=== PATIENT | male | born 1975 | race Caucasian/White ===

== ENCOUNTER 2017-01-18 21:22 | Emergency (ER) | payer BC, OTHER ==
[2017-01-18] MEDS ORDERED: ONDANSETRON 4 MG/2 ML VIAL IVP STA (21:33)
[2017-01-18] MEDS ORDERED: KETOROLAC 60 MG/2 ML VIAL IVP STA (21:33)
[2017-01-18] MEDS ORDERED: SODIUM CHLORIDE 0.9% 1,000 ML IV ONE ×2 (21:34→21:36)
[2017-01-18] MEDS ORDERED: ONDANSETRON 4 MG/2 ML VIAL ONE (21:36)
[2017-01-18] MEDS ORDERED: KETOROLAC 30 MG/ML VIAL ONE (21:36)
[2017-01-18] MEDS ORDERED: MORPHINE 10 MG/ML VIAL IVP STA (22:04)
[2017-01-18] MEDS ORDERED: MORPHINE 10 MG/ML VIAL ONE (22:08)
[2017-01-18] MEDS ORDERED: oxyCODONE/ACET 5/325 Prepack 4 PO STA (22:32)
[2017-01-18] MEDS ORDERED: ONDANSETRON ODT 4 MG Prepack 2 TL PRN (22:33)
[2017-01-18] MEDS ORDERED: TAMSULOSIN 0.4 MG CAPSULE PO STA (22:33)
[2017-01-18] MEDS ORDERED: oxyCODONE/ACET 5/325 Prepack 4 PO ONE (22:37)
[2017-01-18] MEDS ORDERED: ONDANSETRON ODT 4 MG Prepack 2 TL ONE (22:37)
[2017-01-18] MEDS ORDERED: TAMSULOSIN 0.4 MG CAPSULE ONE (22:37)
== END 2017-01-18 22:55 | disposition home or self-care (01) ==
DX: N13.2 Hydronephrosis with renal and ureteral calculous obstruction (principal); I10 Essential (primary) hypertension; F17.200 Nicotine dependence, unspecified, uncomplicated
CPT/HCPCS: 74176; 81001; 96361; 96374; 96375; 99283; 99284; A9270

== ENCOUNTER 2020-01-31 07:51 | Emergency (ER) | payer BC ==
--- NOTE | 2020-01-31 08:19 | ED Physician Documentation ---
History of Present Illness - Stated complaint Stated Complaint: RT SIDE PX - Chief complaint Chief Complaint: Abd Pain - History obtained from History obtained from: Patient - History of Present Illness Timing: Today Pain level max: 10 Pain level now: 8 Radiates to: None - Additonal information Additional information: This is a 44-year-old man who presents with complaints that he has a history of kidney stones woke up this morning at approximately 3-1/2 hours prior to presentation with his right side "killing him". He urinated and it did not do anything to alleviate the pain and then he had a bowel movement and urinated at the same time and the urine was very dark. Pain was a 10 out of 10 it is now down to an 8 out of 10. He did not take anything for it at home. He just wants Flomax, "hydromorphone" and Zofran and "get out of our hair". He does see a urologist and has had to have lithotripsy and a ureteroscopic he in the past. He has managed to pass stones spontaneously. He denies pain radiating down his legs. He is been nauseous but no vomiting or diarrhea. Denies fever. He has not had any upper respiratory symptoms of sore throat, stuffy nose or coughing. He does take blood pressure medications. The patient works as an accounting professional. He says he drinks about 3 alcoholic beverages a week. Review of Systems Constitutional: denies: Fever Nose: denies: Rhinorrhea / runny nose, Congestion Throat: denies: Sore throat Cardiac: denies: Chest pain / pressure Respiratory: denies: Dyspnea, Cough GI: reports: Abdominal Pain, Nausea. denies: Vomiting, Diarrhea : denies: Dysuria, Hematuria (Urine did look very dark) Musculoskeletal: reports: Back pain (Right flank) Neurologic: denies: Focal weakness, Numbness, Near syncope PD PAST MEDICAL HISTORY - Past Medical History Cardiovascular: Hypertension : Kidney stones - Past Surgical History Past Surgical History: Yes - Present Medications Home Medications: Ambulatory Orders Medication Instructions Recorded Confirmed Lisinopril 1 mg PO DAILY 01/18/17 01/18/17 Ondansetron Odt [Zofran] 4 mg TL Q6H PRN #10 tablet 01/31/20 Oxycodone HCl/Acetaminophen 1 each PO Q4H #20 tablet 01/31/20 [Endocet 7.5-325 mg Tablet] Tamsulosin HCl [Flomax] 0.4 mg PO DAILY #16 cap.er.24h 01/31/20 - Allergies Allergies/Adverse Reactions: Allergies Allergy/AdvReac Type Severity Reaction Status Date / Time No Known Drug Allergies Allergy Verified 01/31/20 08:11 - Social History Does the pt smoke?: Yes Smoking Status: Current every day smoker Does the pt drink ETOH?: Yes Does the pt have substance abuse?: Yes - Immunizations Immunizations are current?: Yes - POLST Patient has POLST: No PD ED PE NORMAL - Vitals Vital signs reviewed: Yes - General General: Alert and oriented X 3, Well developed/nourished, Other (Sitting on the side of the exam table clutching at his right side/flank and grunting in pain.) - HEENT HEENT: Atraumatic, PERRL, Moist mucous membranes - Cardiac Cardiac: RRR, No murmur - Respiratory Respiratory: No respiratory distress, Clear bilaterally - Abdomen Abdomen: Normal bowel sounds, Other (He is holding his musculature pretty tight but does not appear to be in any pain. No guarding or rebound.) - Back Back: No CVA TTP - Derm Derm: Normal color, Warm and dry, No rash - Extremities Extremities: No edema - Neuro Neuro: Alert and oriented X 3, contract paralegal 2-12 intact, No motor deficit, No sensory def icit, Normal speech Results - Vitals Vitals: Vital Signs - 24 hr 01/31/20 01/31/20 01/31/20 08:09 08:42 09:14 Temperature 36.5 C 36.6 C Heart Rate 91 70 75 Respiratory 18 18 16 Rate Blood Pressure 140/86 H 129/79 120/75 O2 Saturation 99 97 98 Oxygen O2 Source Room air - Labs Labs: Laboratory Tests 01/31/20 01/31/20 01/31/20 08:17 08:24 08:24 WBC 8.3 RBC 5.48 Hgb 16.0 Hct 48.8 MCV 89.1 MCH 29.2 MCHC 32.8 RDW 12.2 Plt Count 266 MPV 9.1 Neut # (Auto) 6.4 Lymph # (Auto) 1.2 L Stephens # (Auto) 0.5 Eos # (Auto) 0.1 Baso # (Auto) 0.0 Absolute Nucleated RBC 0.00 Nucleated RBC % 0.0 Sodium 138 Potassium 4.4 Chloride 107 Carbon Dioxide 23 Anion Gap 8.0 BUN 14 Creatinine 0.9 Estimated GFR (MDRD) 92 Glucose 102 H Calcium 8.9 Total Bilirubin 0.5 AST 26 ALT 43 Alkaline Phosphatase 70 Total Protein 6.8 Albumin 4.1 Globulin 2.7 Albumin/Globulin Ratio 1.5 Lipase 42 Urine Color YELLOW Urine Clarity HAZY Urine pH 6.0 Ur Specific [place] 1.010 Urine Protein NEGATIVE Urine Glucose (UA) NEGATIVE Urine Ketones NEGATIVE Urine Occult Blood LARGE H Urine Nitrite NEGATIVE Urine Bilirubin NEGATIVE Urine Urobilinogen 0.2 (NORMAL) Ur Leukocyte Esterase NEGATIVE Urine RBC TNTC H Urine WBC 0-3 Ur Squamous Epith Cells RARE Squamous Urine Bacteria Rare Urine Mucus Few Strands Ur Microscopic Review INDICATED Urine Culture Comments NOT INDICATED - Rads (name of study) KUB Radiology: EMP read indepedently (Probable kidney stone at L2 lat process measuring appro 4mm), EMP read contemporaneously PD MEDICAL DECISION MAKING - ED course Complexity details: re-evaluated patient ED course: 911; IV was started the patient was given a liter of fluids Zofran and 30 mg of Toradol IV. On reevaluation he said the pain was down to just feeling like a poking in the right flank. Urine had too numerous to count red blood cells. No white blood cells. His white blood cell count is normal and his BUN and creatinine are normal. A KUB was ordered to see if we can see the stone. 0956: The KUB radiology report is still pending but I think I see what could be a stone around the L2 Lateral process that measures just at 4 mm. Patient had good pain relief with the Toradol. Will discharge with hydrocodone prescription, Flomax is well as Zofran. He has a urologist and will be encouraged to schedule follow-up appointment with them. 1012: Patient was stating that the hydrocodone prescriptions have never worked for him in the past. He is always been given hydromorphone. I do not feel comfortable prescribing Dilaudid from the emergency department for an acute issue. I will give him a prescription for Percocet and we talked about keeping the pain under control so that he does not get out of control. Departure - Departure Disposition: 01 Home, Self Care Clinical Impression: Renal colic Condition: Good Instructions: ED Stone Renal W Colic Prescriptions: Ondansetron Odt [Zofran] 4 mg TL Q6H PRN #10 tablet PRN Reason: Nausea / Vomiting Oxycodone HCl/Acetaminophen [Endocet 7.5-325 mg Tablet] 1 each PO Q4H #20 tablet Tamsulosin HCl [Flomax] 0.4 mg PO DAILY #16 cap.er.24h Comments: Make sure that you are drinking plenty of water at least 100 ounces a day. Take the Flomax daily as prescribed. Use the Zofran if feeling nausea. Take hydrocodone if needed for pain. Do not drive or operate machinery or take additional Tylenol if you are using the hydrocodone. Also take ibuprofen 3 to 4 tablets every 8 hours with food. Call and schedule follow-up appointment with the urology specialist. If you have pain that is not being relieved with the pain medications, you are vomiting and cannot keep anything down, develop fever or are not urinating you should be reevaluated.
[2020-01-31 08:25] LABS: BILIRUBIN,URINE NEGATIVE (NEGATIVE); GLUCOSE, URINE (UA) NEGATIVE (NEGATIVE); KETONES,URINE (UA) NEGATIVE (NEGATIVE); LEUKOCYTE ESTERASE, URINE NEGATIVE (NEGATIVE); NITRITE,URINE NEGATIVE (NEGATIVE); OCCULT BLOOD,URINE LARGE (NEGATIVE); PROTEIN,URINE NEGATIVE (NEGATIVE); UROBILINOGEN,URINE 0.2 (NORMAL) E.U./dL (NORMAL)
[2020-01-31] MEDS ORDERED: ONDANSETRON 4 MG/2 ML VIAL IVP STA (08:28)
[2020-01-31] MEDS ORDERED: SODIUM CHLORIDE 0.9% 1,000 ML IV ONE (08:28)
[2020-01-31] MEDS ORDERED: KETOROLAC 30 MG/ML VIAL IVP STA (08:28)
[2020-01-31 08:30] LABS: BASOPHILS % (AUTO) 0.5 %; EOSINOPHILS # (AUTO) 0.1 10^3/uL (0.0-0.7); EOSINOPHILS % (AUTO) 1.1 %; LYMPHOCYTES # (AUTO) 1.2 10^3/uL (1.5-3.5); LYMPHOCYTES % (AUTO) 14.9 %; MEAN CORPUSCULAR HEMOGLOBIN 29.2 pg (27.0-31.0); MEAN CORPUSCULAR HGB CONC 32.8 g/dL (32.0-36.0); MEAN CORPUSCULAR VOLUME 89.1 fL (80.0-94.0); MEAN PLATELET VOLUME 9.1 fL (7.4-11.4); MONOCYTES # (AUTO) 0.5 10^3/uL (0.0-1.0); MONOCYTES % (AUTO) 5.9 %; NEUTROPHILS # (AUTO) 6.4 10^3/uL (1.5-6.6); NEUTROPHILS % (AUTO) 77.1 %; PLT - PLATELET COUNT 266 10^3/uL (130-450); RED BLOOD COUNT 5.48 10^6/uL (4.70-6.10); RED CELL DISTRIBUTION WIDTH 12.2 % (12.0-15.0); WHITE BLOOD COUNT 8.3 x10^3/uL (4.8-10.8)
[2020-01-31 08:38] LABS: CLARITY,URINE HAZY (CLEAR)
[2020-01-31 08:41] LABS: BACTERIA,URINE Rare /HPF (None Seen); MUCUS,URINE Few Strands; RBC,URINE TNTC /HPF (0-5); SQUAMOUS EPITHELIAL CELL,UR RARE Squamous (<= Few)
[2020-01-31 08:43] LABS: ALBUMIN 4.1 g/dL (3.2-5.5); ALBUMIN/GLOBULIN RATIO 1.5 (1.0-2.2); BILIRUBIN,TOTAL 0.5 mg/dL (0.2-1.0); CALCIUM 8.9 mg/dL (8.5-10.3); CREATININE 0.9 mg/dL (0.6-1.2); TOTAL PROTEIN 6.8 g/dL (6.7-8.2)
--- NOTE | 2020-01-31 09:54 | XRAY Report ---
Reason: R flank pain; h/o kidney stones Procedure Date: 01/31/2020 Accession Number: [id number] / [id number] Procedure: XR - Abdomen 1 View X-Ray CPT Code: 55347 Final Report FULL RESULT: EXAM: ABDOMEN RADIOGRAPHY EXAM DATE: 01/31/2020 09:31 AM. CLINICAL HISTORY: R flank pain; h/o kidney stones. COMPARISON: ABDOMEN/PELVIS W/O 01/18/2017 9:49 PM. TECHNIQUE: 1 view. FINDINGS: Diaphragm/uppermost abdomen excluded from imaging. Bowel Gas Pattern: Within normal limits. No dilated loops. Other: 4 mm calcific density over the left mid renal shadow could reflect renal calculus. A non-obstructing calculus was seen in this region on prior CT. Faint 4-5 mm density adjacent to the right L2 transverse process could be related to bowel contents versus right ureter stone. No acute osseous abnormality. IMPRESSION: 1. 4-5 mm density adjacent to the right L2 transverse process could be related to bowel contents versus right ureter stone. 2. 4 mm calcific density over left renal shadow likely related to nonobstructing calculus. 2. Otherwise unremarkable single view abdominal radiography. [facility]
[2020-01-31 10:34] VITALS: BP 110/76
== END 2020-01-31 10:34 | disposition home or self-care (01) ==
LOC: ED 07:51
DX: N23 Unspecified renal colic (principal); I10 Essential (primary) hypertension; F17.210 Nicotine dependence, cigarettes, uncomplicated
CPT/HCPCS: 36415; 74018; 80053; 81001; 81003; 83690; 85025; 87086; 96374; 99284

== ENCOUNTER 2020-08-19 15:21 | Outpatient (CLI) | payer BC ==
[2020-08-19 21:16] LABS: BILIRUBIN,URINE NEGATIVE (NEGATIVE); GLUCOSE, URINE (UA) NEGATIVE (NEGATIVE); KETONES,URINE (UA) NEGATIVE (NEGATIVE); LEUKOCYTE ESTERASE, URINE NEGATIVE (NEGATIVE); NITRITE,URINE NEGATIVE (NEGATIVE); OCCULT BLOOD,URINE MODERATE (NEGATIVE); PROTEIN,URINE NEGATIVE (NEGATIVE); UROBILINOGEN,URINE 0.2 (NORMAL) E.U./dL (NORMAL)
[2020-08-19 21:19] LABS: CLARITY,URINE CLOUDY (CLEAR)
[2020-08-19 21:35] LABS: AMORPHOUS SEDIMENT,UR Few /LPF; BACTERIA,URINE None Seen /HPF (None Seen); MUCUS,URINE Moderate Strands; SPERM,URINE PRESENT; SQUAMOUS EPITHELIAL CELL,UR NONE SEEN (<= Few)
== END 2020-08-19 23:59 | disposition home or self-care (01) ==
LOC: LAB.R 15:21
PROVIDERS: ATTEND Physician Assistant Medical
DX: R30.0 Dysuria (principal)
CPT/HCPCS: 81001; 87086

== ENCOUNTER 2020-08-19 16:12 | Outpatient (CLI) | payer BC ==
[2020-08-19 20:51] LABS: BASOPHILS # (AUTO) 0.1 10^3/uL (0.0-0.1); BASOPHILS % (AUTO) 0.7 %; EOSINOPHILS # (AUTO) 0.1 10^3/uL (0.0-0.7); EOSINOPHILS % (AUTO) 1.5 %; HGB - HEMOGLOBIN 16.5 g/dL (14.0-18.0); LYMPHOCYTES # (AUTO) 1.8 10^3/uL (1.5-3.5); LYMPHOCYTES % (AUTO) 20.4 %; MEAN CORPUSCULAR HEMOGLOBIN 30.7 pg (27.0-31.0); MEAN CORPUSCULAR HGB CONC 33.7 g/dL (32.0-36.0); MEAN CORPUSCULAR VOLUME 91.1 fL (80.0-94.0); MEAN PLATELET VOLUME 9.6 fL (7.4-11.4); MONOCYTES # (AUTO) 0.6 10^3/uL (0.0-1.0); NEUTROPHILS # (AUTO) 6.2 10^3/uL (1.5-6.6); PLT - PLATELET COUNT 290 10^3/uL (130-450); RED BLOOD COUNT 5.38 10^6/uL (4.70-6.10); RED CELL DISTRIBUTION WIDTH 12.6 % (12.0-15.0); WHITE BLOOD COUNT 8.9 x10^3/uL (4.8-10.8)
[2020-08-19 21:06] LABS: ALBUMIN 4.3 g/dL (3.2-5.5); ALBUMIN/GLOBULIN RATIO 1.5 (1.0-2.2); BILIRUBIN,TOTAL 0.6 mg/dL (0.2-1.0); CALCIUM 9.6 mg/dL (8.5-10.3); CREATININE 0.9 mg/dL (0.6-1.2); TOTAL PROTEIN 7.2 g/dL (6.7-8.2)
== END 2020-08-19 16:13 | disposition home or self-care (01) ==
LOC: LAB.S 16:12
PROVIDERS: ATTEND Physician Assistant Medical
DX: R30.0 Dysuria (principal)
CPT/HCPCS: 36415; 80053; 85025